=== PATIENT | female | born 1995 ===

== ENCOUNTER 2023-10-17 05:58 | Day surgery (SDC) | payer OTHER ==
[2023-10-17] MEDS ORDERED: CEFTRIAXONE SODIUM 2,000 MG VIAL ONE (08:26)
[2023-10-17] MEDS ORDERED: METRONIDAZOLE/SODIUM CHLORIDE 500 MG/100 ML PIGGYBACK IV ONE ×2 (08:26→09:30)
[2023-10-17] MEDS ORDERED: BUPIVACAINE HCL/PF 0.5% 30ML ML ONE (08:55)
[2023-10-17] MEDS ORDERED: DIBUCAINE 15 GM OINT..GM. TUBE ONE (08:55)
[2023-10-17] MEDS ORDERED: LIDOCAINE HCL 1%/Epi 20ML VIAL IJ ONE ×2 (08:55→09:15)
[2023-10-17] MEDS ORDERED: HEMOSTATIC MATRIX 1 KIT KIT TOP ONE ×2 (08:55→09:15)
[2023-10-17] MEDS ORDERED: POVIDONE-IODINE 118 ML BOTT TOP ONE (08:55)
[2023-10-17] MEDS ORDERED: BUPIVACAINE HCL/Mpf 0.5% 10ML VIAL IJ ONE (09:15)
[2023-10-17] MEDS ORDERED: DIBUCAINE 30 GM TUBE RECTAL ONE (09:15)
[2023-10-17] MEDS ORDERED: RECTICARE30 GM TOP (09:16)
[2023-10-17] MEDS ORDERED: PERCOCET 5-3251 EACH PO (09:16)
[2023-10-17] MEDS ORDERED: CEFTRIAXONE SODIUM 2,000 MG VIAL IV ONE (09:30)
[2023-10-17] MEDS ORDERED: TAMSULOSIN HCL 0.4 MG CAP PO ONE (16:45)
== END 2023-10-17 17:10 | disposition home or self-care (01) ==
LOC: CIR.AMB 05:58
PROVIDERS: ATTEND Surgery
DX: K60.1 Chronic anal fissure (principal); K62.4 Stenosis of anus and rectum; K62.5 Hemorrhage of anus and rectum; K64.8 Other hemorrhoids; Z20.822 Contact with and (suspected) exposure to COVID-19